=== PATIENT | male | born 1980 | race Caucasian/White ===

== ENCOUNTER 2021-08-19 23:26 | Inpatient (IN) ==
[2021-08-19 23:37] VITALS: O2SAT 95
[2021-08-20 01:16] LABS: Bilirubin,Urine Negative (Negative); Blood,Urine Negative (Negative); Clarity,Urine Clear (Clear); Color,Urine Yellow (Yellow); Glucose,Urine (UA) Normal (Normal); Ketones,Urine Negative (Negative); Leukocyte Esterase,Urine Negative (Negative); Nitrite,Urine Negative (Negative); Protein,Urine Trace mg/dL (Neg-Trace); Specific Gravity,Urine > 1.030 (1.010-1.025)
[2021-08-20 01:27] LABS: Amphetamine Screen,Urine Negative ng/mL (Cutoff=1000); Barbiturate Screen,Urine Negative ng/mL (Cutoff=200); Benzodiazepines Screen,Urine Negative ng/mL (Cutoff=200); Cannabinoid Screen,Urine Negative ng/mL (Cutoff = 50); Cocaine Screen,Urine Negative ng/mL (Cutoff= 300); Opiate Screen,Urine Negative ng/mL (Cutoff=300); Phencyclidine Screen,Urine Negative ng/mL (Cutoff=25)
[2021-08-20 06:33] LABS: Influenza A PCR Negative (Negative); Influenza B PCR Negative (Negative); Resp. Syncytial Virus PCR Negative (Negative)
[2021-08-20 06:35] LABS: SARS-CoV-2 by PCR (In House) Negative (Negative)
[2021-08-20] MEDS ORDERED: Ibuprofen 400 MG TABLET PO PRN (07:10)
[2021-08-20] MEDS ORDERED: haloperidoL 5 MG TABLET PO PRN (07:10)
[2021-08-20] MEDS ORDERED: hydrOXYzine pamoate 25 MG CAPSULE PO PRN (07:10)
[2021-08-20] MEDS ORDERED: *HR* LORazepam 2 MG/ML VIAL IM PRN (07:10)
[2021-08-20] MEDS ORDERED: Acetaminophen 325 MG TABLET PO PRN (07:10)
[2021-08-20] MEDS ORDERED: *HR* LORazepam 1 MG TABLET PO PRN (07:10)
[2021-08-20] MEDS ORDERED: QUEtiapine Fumarate 25 MG TABLET PO PRN (07:10)
[2021-08-20] MEDS ORDERED: Haloperidol Lactate 5 MG/ML VIAL IM PRN (07:10)
[2021-08-20] MEDS ORDERED: Mag Hydrox/Al Hydrox/Simeth 30 ML UDC PO PRN (14:34)
[2021-08-20] MEDS ORDERED: MOM Conc 10 ML UD.LIQ PO PRN (14:34)
[2021-08-20] MEDS: Nicotine 21 MG PATCH.TD24 TD SCH (15:02)
[2021-08-20] MEDS ORDERED: haloperidoL 5 MG TABLET PO SCH (21:00)
[2021-08-21 08:58] VITALS: BP 112/77; PULSE 79; TEMP 98.1
[2021-08-21] MEDS: Nicotine 21 MG PATCH.TD24 TD SCH (09:55)
== END 2021-08-21 13:45 | disposition home or self-care (01) | DRG 885 ==
LOC: EMEROOARM 23:26 → 1ANU 08-20 07:42
PROVIDERS: ADMIT Psychiatry & Neurology Psychiatry; ATTEND Psychiatry & Neurology Psychiatry